=== PATIENT | male | born 1970 | race Caucasian/White ===

== ENCOUNTER → 2017-08-31 | Outpatient (CLI) | payer BC | END | disposition home or self-care (01) | LOC: PLD 10:00 → LAB SHORT 10:00 | DX: D22.61 Melanocytic nevi of right upper limb, including shoulder (principal); D22.62 Melanocytic nevi of left upper limb, including shoulder; D22.5 Melanocytic nevi of trunk; D22.72 Melanocytic nevi of left lower limb, including hip | CPT/HCPCS: 88305 ==

== ENCOUNTER 2017-10-05 06:03 | Day surgery (SDC) | payer BC ==
[~2017-10-05] VITALS: Ht 185.4 cm; Wt 106.6 kg
[~2017-10-05 06:03] MED LIST: ATOR10 PO; FLONASE ALLERG9.9 ML; IRON PO; ZESTORETIC 20-121 EA PO
== END 2017-10-05 23:08 | disposition home or self-care (01) ==
LOC: ORSCMMR 06:03 → ORD 07:30 → ORSCMMR 23:08
PROVIDERS: Surgery
PROC: 0DJD8ZZ Inspection of Lower Intestinal Tract, Via Natural or Artificial Opening Endoscopic (ICD-10-PCS; principal; 2017-10-05 07:30)
PROC: 06BY0ZC Excision of Hemorrhoidal Plexus, Open Approach (ICD-10-PCS; principal; 2017-10-05 07:30)
DX: K92.1 Melena (principal); K64.1 Second degree hemorrhoids; K64.4 Residual hemorrhoidal skin tags; I10 Essential (primary) hypertension; Z79.899 Other long term (current) drug therapy
CPT/HCPCS: 88304; J1100; J1885; J2250; J2405; J3010; J7120

== ENCOUNTER → 2021-12-29 | Outpatient (CLI) | payer BC | END | disposition home or self-care (01) | LOC: PLD 15:07 → LAB SHORT 15:07 | DX: D22.5 Melanocytic nevi of trunk (principal) | CPT/HCPCS: 88305 ==